=== PATIENT | male | born 1975 | race African-American/Black ===

== ENCOUNTER 2017-01-05 01:53 | Emergency (ER) | payer MEDICAID ==
[~2017-01-05] VITALS: Ht 172.7 cm; Wt 74.8 kg
[2017-01-05 01:55] VITALS: BP 155/102; PULSE 110; RESP 18; TEMP 98; O2SAT 96
--- NOTE | 2017-01-05 01:55 | NUR ---
Patient to ER bed 8 to gown for evaluation. Side rails up. Report given to Paco SALGADO.
--- NOTE | 2017-01-05 02:00 | NUR ---
Pt presents to ED for Rx refill. Pt stated that he lost his bag of medication that contains lisinopril, lantus, and metformin yesterday. A&Ox4, denies SOB or chest, denies N/V/D. Will continue to monitor
--- NOTE | 2017-01-05 02:12 | NUR ---
MD Venegas aware of BP 155/102, POCT sugar 388. stated it is ok to discharge pt
[2017-01-05 02:24] VITALS: BP 148/97; PULSE 103; RESP 18; TEMP 98; O2SAT 97
--- NOTE | 2017-01-05 02:24 | NUR ---
Patient given written and verbal discharge instructions and verbalizes understanding. ER MD discussed with patient the results and treatment provided. Patient in stable condition. ID arm band removed. Rx of lisinopril, lantus, and metformin given. Patient educated on pain management and to follow up with PMD. Pain Scale 0/10 Opportunity for questions provided and answered.
== END 2017-01-05 02:24 | disposition home or self-care (01) ==
LOC: SED 01:53
DX: Z76.0 Encounter for issue of repeat prescription (principal); E10.65 Type 1 diabetes mellitus with hyperglycemia; F12.20 Cannabis dependence, uncomplicated; F17.210 Nicotine dependence, cigarettes, uncomplicated; Z79.4 Long term (current) use of insulin; Z71.6 Tobacco abuse counseling
CPT/HCPCS: 99283